=== PATIENT | male | born 1985 | race Hispanic/Latino ===

== ENCOUNTER 2020-01-16 14:22 | Emergency (ER) | payer OTHER ==
[~2020-01-16] VITALS: Ht 167.6 cm; Wt 117.0 kg
[2020-01-16] MEDS ORDERED: TETRACAINE HCL 0.5% OPTH SOLN 4 ML BTL OP ONE (14:30)
[2020-01-16] MEDS ORDERED: FLUORESCEIN SOD(OPTH) 1 MG STRP OP ONE (14:30)
== END 2020-01-16 15:10 | disposition home or self-care (01) ==
LOC: ER 14:22
DX: T15.01XA Foreign body in cornea, right eye, initial encounter (principal); Y99.0 Civilian activity done for income or pay
CPT/HCPCS: 99282